=== PATIENT | male | born 1970 | race Two or more races ===

== ENCOUNTER 2019-01-21 12:30 | Day surgery (SDC) | payer OTHER, BC ==
[2019-01-21] MEDS ORDERED: PROPOFOL 60 ML (14:30)
[2019-01-21] MEDS ORDERED: LIDOCAINE 2% (SDV) 5 ML INJ (14:30)
== END 2019-01-21 16:09 | disposition home or self-care (01) ==
LOC: GIL 12:30
DX: D12.5 Benign neoplasm of sigmoid colon (principal); D12.8 Benign neoplasm of rectum; K64.8 Other hemorrhoids; D12.3 Benign neoplasm of transverse colon
CPT/HCPCS: 45380; 88305